=== PATIENT | female | born 1955 | race Caucasian/White ===

== ENCOUNTER → 2018-05-07 | Outpatient (CLI) | payer BC, MEDICARE ==
[~2018-05-07] MED LIST: ALBU8.5H IH; ALBUTEROL INHALER; ATEN-1 PO; ATENOLOL PO; CALC-595 PO; LEVO-3 PO; LEVO150T78 PO; LEVO200T50 PO; MON10 PO; MONT10TA PO; MULT-820 PO; RIZA10TA24 PO; SYNTHROID PO; TRIA-18 PO; TRIAMTERENE; ZOLP-1 PO; [UNRECOGNIZED DRUG - CODE] PO
[2018-05-07 12:16] LABS: PLATELET COUNT, AUTOMATED 311 K/uL (150-450)
[2018-05-07 13:07] LABS: LDL CHOLESTEROL 75 mg/dl
== END ==
LOC: LAB 11:31
PROVIDERS: ATTEND Emergency Medicine
DX: E03.9 Hypothyroidism, unspecified (principal); I10 Essential (primary) hypertension; R20.8 Other disturbances of skin sensation
CPT/HCPCS: 36415; 82040; 82247; 82310; 82374; 82435; 82465; 82565; 82607; 82947; 83718; 83921; 84075; 84132; 84155; 84295; 84443; 84450; 84460; 84478; 84520; 85025

== ENCOUNTER → 2018-05-08 | Outpatient (CLI) | payer MEDICARE, BC ==
[~2018-05-08] MED LIST changes: +LEVO175T42 PO
== END ==
LOC: LAB 07:22
PROVIDERS: ATTEND Emergency Medicine
DX: E87.1 Hypo-osmolality and hyponatremia (principal)
CPT/HCPCS: 83935; 84300

== ENCOUNTER → 2018-05-23 | Outpatient (CLI) | payer MEDICARE, BC ==
[~2018-05-23] MED LIST changes: +LOSA50TA72 PO
== END ==
LOC: LAB 08:21
PROVIDERS: ATTEND Emergency Medicine
DX: E87.1 Hypo-osmolality and hyponatremia (principal)
CPT/HCPCS: 36415; 82310; 82374; 82435; 82565; 82947; 84132; 84295; 84520

== ENCOUNTER → 2018-06-20 | Outpatient (CLI) | payer MEDICARE, BC ==
[~2018-06-20] MED LIST changes: -LOSA50TA72 PO; +LOSA50TA74 PO
== END ==
LOC: LAB 07:48
PROVIDERS: ATTEND Emergency Medicine
DX: E03.9 Hypothyroidism, unspecified (principal); I10 Essential (primary) hypertension
CPT/HCPCS: 36415; 82310; 82374; 82435; 82565; 82947; 84132; 84295; 84443; 84520

== ENCOUNTER → 2018-07-05 | Outpatient (CLI) | payer MEDICARE, BC ==
[~2018-07-05] MED LIST changes: +DIPH0.5S4 IM; +LOSA100T69 PO; +PNEU0.5D3 IM
--- NOTE | 2018-07-05 10:09 | RADIOLOGY IMAGING REPORT ---
[place] [facility] [place] NAME: Janae Hunt : 1955 MR: [id number] V: [id number] EXAM DATE: ORDERING PHYSICIAN: ANDREAS NAGEL TECHNOLOGIST: Location: [facility] Patient: Janae Hunt : 1955 Visit/Account:[id number] Date of Sevice: 07/05/2018 DEXA Scan Clinical history: Osteopenia. Comparison: DEXA scan from 06/11/2015. LUMBAR SPINE: The bone mineral density (BMD) measured from L1-L4 correlates with a Z-score 2.2 and a T-score of 1. 2 which is Normal as defined by the World Health Organization. The corresponding risk of fracture in the lumbar spine is Not increased compared with a young adult reference population. This value has improved by 3.8 % since the prior study. More than 5% change is considered significant. HIP: Bone mineral density (BMD) measured in the Left total hip region correlates with a Z-score 0.8 and a T-score of 0.1 which is Normal as defined by the World Health Organization. The corresponding risk o f fracture in the hip is Not increased compared with a young adult reference population. This value h as decreased by -1.3 % since the prior study. More than 5% change is considered significant. Bone mineral density (BMD) measured in the Femoral Neck region measures 1.020 g/cm2.. T score of 0.1 . Normal. Corresponding risk of fracture not increased when compared to the young adult reference p opulation IMPRESSION: 1. Lumbar spine: Normal. There has been improvement in the bone mineral density since the previous exam. 2. Left Total Hip: Normal. There has been decrease in the bone mineral density since the previous e xam. 3. Femoral Neck: Bone Mineral Density is 1.020 g/cm2 . Normal. The next DEXA scan of this patient should include the following sites: L1-L4 and the left hip. FRAX? WHO Fracture Risk Assessment Tool link: <http://www.shef.ac.uk/FRAX/tool.jsp?locationValue=9> PLEASE NOTE: 1) The World Health Organization defines low BMD as follows: T-score Normal > -1 Osteopenia < -1 and > -2.5 Osteoporosis < -2.5 without fractures Established osteoporosis < -2.5 with fractures 2) In general, you may wish to consider: Diagnosis Treatment Follow-up DEXA Normal BMD Prevention 2-3 years Osteopenia Prevention/therapy 1-2 years Osteoporosis Therapy Yearly 3) Fracture risk estimated from the T-score is more accurate for vertebral fractures (often spontane ous) than for hip fractures. Report Dictated By: Angus Sparks MD at 07/05/2018 9:59 AM Report E-Signed By: Angus Sparks MD at 07/05/2018 10:04 AM WSN:[email or web address]
== END ==
LOC: RAD 00:39
PROVIDERS: ATTEND Emergency Medicine
DX: Z78.0 Asymptomatic menopausal state (principal)
CPT/HCPCS: 77080

== ENCOUNTER → 2018-07-31 | Outpatient (CLI) | payer MEDICARE, BC | LOC: LAB 08:54 | PROVIDERS: ATTEND Emergency Medicine | DX: E87.1 Hypo-osmolality and hyponatremia (principal) | CPT/HCPCS: 36415; 82310; 82374; 82435; 82533; 82565; 82947; 84132; 84295; 84520 ==

== ENCOUNTER → 2018-10-09 | Outpatient (CLI) | payer MEDICARE, BC ==
[~2018-10-09] MED LIST changes: +AMLO2.5T78 PO; -LOSA100T69 PO; +LOSA100T75 PO; -LOSA50TA74 PO; +LOSA50TA80 PO
--- NOTE | 2018-10-10 08:26 | RADIOLOGY IMAGING REPORT ---
FACILITY: [facility] PATIENT NAME: LEONEL VALDEZ : [id number] MR: [id number] V: [id number] EXAM DATE: ORDERING PHYSICIAN: ANDREAS NAGEL TECHNOLOGIST: Gaby Rhodes PROCEDURE:BILATERAL DIGITAL SCREENING MAMMOGRAM WITH CAD ASSISTED INTERPRETATION & 3D TOMOSYNTHESIS COMPARISON:Prior mammograms 08/15/17, 06/28/16, 02/26/15, 12/12/13, 07/04/12. INDICATIONS:screening FINDINGS: The breasts are almost entirely fatty. The parenchymal pattern has remained stable allowing for difference in mammographic technique & patient positioning. DIAGNOSTIC CATEGORY 1--NEGATIVE. RECOMMENDATIONS: ROUTINE MAMMOGRAM AND CLINICAL EVALUATION. IMPRESSION: BIRADS 1: Negative. No significant abnormality is seen. Dictated by: Carlene Pettit M.D. on 10/09/2018 at 16:38 Transcribed by: DAMIÁN on 10/10/2018 at 7:52 Approved by: Carlene Pettit M.D. on 10/10/2018 at 8:25 [facility]
== END ==
LOC: MAMO 00:54
PROVIDERS: ATTEND Emergency Medicine
DX: Z12.31 Encounter for screening mammogram for malignant neoplasm of breast (principal)
CPT/HCPCS: 77063; 77067

== ENCOUNTER → 2018-12-12 | Outpatient (CLI) | payer MEDICARE, BC ==
[~2018-12-12] MED LIST changes: +TRIA15OI20 TP
[2018-12-12 10:15] LABS: PLATELET COUNT, AUTOMATED 379 K/uL (150-450)
== END ==
LOC: LAB 10:07
PROVIDERS: ATTEND Emergency Medicine
DX: L20.89 Other atopic dermatitis (principal)
CPT/HCPCS: 36415; 82310; 82374; 82435; 82565; 82947; 84132; 84295; 84520; 85025